=== PATIENT | female | born 1970 | race Caucasian/White ===

== ENCOUNTER 2016-09-14 20:01 | Emergency (ER) | payer OTHER ==
[~2016-09-14 20:01] MED LIST: ALPRAZOLAM PO; AMBIEN10 MG PO; AMITRIPTYLINE H50 MG PO; AMITRYPTYLINE PO; ARANESP25 MCG/ML IJ; AUGMENTIN PO; B-12 SUBQ; BACTRIM DS TABL1 TA1 PO; BENTYL20 MG PO; CIPRO PO; CIPRO250 MG PO; COLACE50 MG PO; CYANOCOBAL1000 MCG/M INJ; DICLOFENAC PO; DICYCLOMINE HCL20 MG PO; DOXEPIN PO; EFFEXOR PO; EFFEXOR XR75 MG PO; EFFEXOR75 MG PO; FEOSOL PO; FLEXERIL10 M1 PO; HYDROCHLOROTH12.5 MG PO; HYDROCHLOROTHIA25 MG PO; HYDROCODON-ACE1 EAC7 PO; IMITREX50 MG PO; IRON1 TA1 PO; IRON325 ( 651 PO; K-DUR20 ME1 PO; KADIAN30 MG PO; LASIX20 MG PO; LISINOPRIL PO; LISINOPRIL10 MG PO; LISINOPRIL20 MG PO; LO/OVRAL-281 TAB PO; LORTAB 5/500 TA1 TA1 PO; LORTAB 5/500 TA1 TA2 PO; MICRO-K10 MEQ PO; MIRALAX17 GM PO; MORPHINE SULFAT30 M3 PO; MOTRIN600 MG PO; MS CONTIN30 MG PO; NAPROSYN500 MG PO; NAPROXEN PO; NO MEDICATIONS; NORCO 10/325 TA1 TAB PO; OMEPRAZOLE20 M2 PO; OMEPRAZOLE40 MG PO; ONDANSETRON HCL4 MG PO; PAXIL; PAXIL40 MG PO; PEGASYS; PEGASYS180 MCG/M1 SQ; PEPCID AC20 M2 PO; PEPCID PO; PERCOCET 10/3251 TAB PO; PERCOCET 7.5/321 TAB PO; PERCOCET PO; PHENERGAN PO; PHENERGAN12.5 MG PO; PHENERGAN25 M1 PO; PHENERGAN25 MG PO; PREDNISONE PO; PREDNISONE10 MG PO; PREVACID PO; PRILOSEC; PRILOSEC PO; PRILOSEC20 MG PO; PRILOSEC40 MG PO; PROMETHAZI6.25 MG/5 PO; PROTONIX PO; PROZAC PO; PROZAC40 MG PO; PYRIDIUM100 MG PO; REBETOL200 MG PO; RIBASPHERE200 M1 PO; RIBOFLAVIN PO; ROBAXIN500 MG PO; SEROQUEL XR150 MG PO; TRILEPTAL PO; TUSSIONEX PENN473 ML PO; ULTRAM; ULTRAM PO; VITAMIN B 12 INJ.; VITAMIN B-1000 MCG/1 IJ; VITAMIN B-1000 MCG/1 SUBQ; ZITHROMAX1 G/PKT PO; ZOFRAN ODT4 MG PO; [UNRECOGNIZED DRUG - OTHER]; [UNRECOGNIZED DRUG - OTHER] IM; [UNRECOGNIZED DRUG - OTHER] PO
== END 2016-09-14 20:15 | disposition home or self-care (01) ==
LOC: CED 20:01
DX: T40.1X1A Poisoning by heroin, accidental (unintentional), initial encounter (principal); F11.10 Opioid abuse, uncomplicated; I10 Essential (primary) hypertension; G43.909 Migraine, unspecified, not intractable, without status migrainosus; Z90.49 Acquired absence of other specified parts of digestive tract; F17.200 Nicotine dependence, unspecified, uncomplicated
CPT/HCPCS: 99282

== ENCOUNTER 2016-12-31 13:54 | Emergency (ER) | payer OTHER ==
[2016-12-31 14:49] LABS: URINE SOURCE CLEAN CATCH
[2016-12-31 14:54] LABS: URINE APPEARANCE CLOUDY; URINE BLOOD 1+ (NEG); URINE COLOR YELLOW; URINE GLUCOSE NORM (NORM); URINE KETONE NEG (NEG); URINE LEUKOCYTE ESTERASE NEG (NEG); URINE NITRATE NEG (NEG); URINE PROTEIN 1+ (NEG); URINE UROBILINOGEN NORM (NORM)
[2016-12-31 14:57] LABS: URINE BILIRUBIN NEG (NEG)
[2016-12-31 15:02] LABS: CULTURE INDICATED? YES; U HYALINE CASTS AUWI 0-2 /[LPF]; URINE BACTERIA AUWI 2+ (NEGATIVE); URINE MUCUS PRESENT; URINE SQUAMOUS EPITHELIAL CELL MODERATE /[HPF]
[2016-12-31 15:12] LABS: BASOPHIL# 0.1 X10e3 (0-0.3); BASOPHIL% 0.8 % (0-2.5); EOSINOPHIL% 0.3 % (0.0-7.0); HEMATOCRIT 40.9 % (35.0-45.0); LYMPHOCYTE# 4.3 X10e3 (1.0-3.5); LYMPHOCYTE% 26.4 % (17.0-45.0); MEAN CORPUSCULAR HEMOGLOBIN 30.2 PG (28-34); MEAN CORPUSCULAR HGB CONC 34.4 g/dL (30-36); MEAN PLATELET VOLUME 9.3 FL (6.5-11.5); MONOCYTE# 1.7 X10e3 (0-1.0); MONOCYTE% 10.3 % (3.0-12.0); NEUTROPHIL# 10.1 X10e3 (1.5-7.1); NEUTROPHIL% 62.2 % (40-75); PLATELET COUNT 202 X10e3 (140-420); RED BLOOD COUNT 4.65 X10e (3.90-5.30); RED CELL DISTRIBUTION WIDTH 14.4 % (11.0-15.5); WHITE BLOOD COUNT 16.3 X10e3 (4.0-10.5)
[2016-12-31 15:15] LABS: BLOOD UREA NITROGEN 23 mg/dL (9-23); BUN/CREATININE RATIO 19.16; CALCIUM SERUM 9.6 mg/dL (8.4-10.2); CARBON DIOXIDE 16 mmol/L (22-31); CHLORIDE 106 mmol/L (100-111); CREATININE SERUM 1.2 mg/dL (0.6-1.4); GLOM FILT RATE Estimated 54.5 mL/min (>60); GLUCOSE FASTING 81 mg/dL (70-110); POTASSIUM 3.8 mmol/L (3.5-5.1); SODIUM 134 mmol/L (135-145)
[2016-12-31 15:17] LABS: DIFF IND YES
[2016-12-31 15:18] LABS: ALCOHOL BLOOD <5 mg/dL (0)
[2016-12-31 15:19] LABS: AMPHETAMINE POS (NEG); BARBITURATES NEG (NEG); BENZODIAZEPINES NEG (NEG); COCAINE NEG (NEG); MARIJUANA NEG (NEG); OPIATES NEG (NEG); TRICYCLIC ANTIDEPRESSANTS NEG (NEG); U METHADONE NEG (NEG)
[2016-12-31 15:19] LABS: PLATELET ESTIMATE NORMAL (NORMAL); RBC NORMAL YES
== END 2016-12-31 21:04 | disposition home or self-care (01) ==
LOC: CED 13:54
PROVIDERS: Student in an Organized Health Care Education/Training Program
DX: F15.129 Other stimulant abuse with intoxication, unspecified (principal); F12.929 Cannabis use, unspecified with intoxication, unspecified; M54.5 Low back pain; G89.29 Other chronic pain; I10 Essential (primary) hypertension; F31.9 Bipolar disorder, unspecified; Z98.890 Other specified postprocedural states; F17.200 Nicotine dependence, unspecified, uncomplicated; Z88.8 Allergy status to other drugs, medicaments and biological substances
CPT/HCPCS: 36415; 80048; 80307; 81003; 85025; 87086; 96361; 96374; 96375; 99284; G0480; J1630; J2060; J2405